=== PATIENT | female | born 1985 | race Hispanic/Latino ===

== ENCOUNTER 2021-04-23 14:12 | Observation (INO) | payer MEDICAID, OTHER ==
[~2021-04-23] VITALS: Ht 172.7 cm; Wt 104.3 kg
[2021-04-23 14:59] LABS: BASOPHILS % (AUTO) 0.6 % (0.0-5.0); EOSINOPHILS % (AUTO) 0.6 % (0.0-8.0); HEMATOCRIT 22.9 % (36-48); LYMPHOCYTES % (AUTO) 19.6 % (21.0-51.0); MEAN CORPUSCULAR HEMOGLOBIN 18.9 pg (27.0-33.0); MEAN CORPUSCULAR HGB CONC 29.3 g/dL (32.0-36.0); MEAN CORPUSCULAR VOLUME 64.5 fL (79-99); MONOCYTES % (AUTO) 4.2 % (3.0-13.0); NEUTROPHILS % (AUTO) 74.4 % (40.0-77.0); PLATELET COUNT (AUTO) 461 K/uL (130-400); RED BLOOD CELL COUNT(AUTO) 3.55 MIL/uL (4.00-5.50); RED CELL DISTRIBUTION WIDTH 19.9 % (11.0-15.5); WHITE BLOOD COUNT (AUTO) 9.5 K/uL (4.8-10.8)
[2021-04-23 16:10] LABS: APPEARANCE,URINE Cloudy (CLEAR); BILIRUBIN,URINE Negative (NEGATIVE); COLOR,URINE Dark Yellow (YELLOW); GLUCOSE, URINE (UA) Negative (NEGATIVE); KETONES,URINE Trace mg/dL (NEGATIVE); LEUKOCYTE ESTERASE ,URINE Trace (NEGATIVE); NITRATE,URINE Negative (NEGATIVE); OCCULT BLOOD,URINE Large (NEGATIVE); PH,URINE 5.5 (5.0-8.0); PROTEIN,URINE Trace mg/dL (NEGATIVE)
[2021-04-23 16:22] LABS: BACTERIA,URINE Few /HPF (None Seen); RBC,URINE 26-50 /HPF (0-1)
[2021-04-23 16:24] LABS: MUCUS,URINE Few LPF (None Seen); SQUAMOUS EPITHELIAL CELL,UR Few /HPF (0-2)
[2021-04-23 16:25] LABS: YEAST,URINE BUDDING Rare /HPF (None Seen)
[2021-04-23 16:40] LABS: CREATININE 0.8 mg/dL (0.5-1.5)
[2021-04-23 16:44] LABS: ALBUMIN 3.6 g/dL (3.5-5.0); BILIRUBIN,TOTAL 0.4 mg/dL (0.2-1.0)
[2021-04-23] MEDS ORDERED: ACETAMINOPHEN WITH CODEINE 1 TAB TAB PO PRN (18:30)
[2021-04-23] MEDS ORDERED: TRANEXAMIC ACID 1000MG/10ML IV ONE (18:30)
[2021-04-23] MEDS ORDERED: TRANEXAMIC ACID 1000MG/10ML ONE (19:51)
[2021-04-23] MEDS ORDERED: 0.9%NACL 50ML 50 ML IV ONE (19:53)
[2021-04-23] MEDS: ESTROGENS,CONJUGATED 25 MG/VIAL IV SCH (20:04)
[2021-04-23 20:50] VITALS: BP 124/71
[2021-04-23] MEDS: IBUPROFEN 600 MG TABLET PO PRN (21:19)
[2021-04-23 22:58] VITALS: BP 113/71
[2021-04-24 03:05] VITALS: BP 93/54
[2021-04-24 07:00] VITALS: BP 107/66
[2021-04-24] MEDS: ESTROGENS,CONJUGATED 25 MG/VIAL IV SCH (08:00)
[2021-04-24 08:48] LABS: HEMATOCRIT 24.8 % (36-48); MEAN CORPUSCULAR HEMOGLOBIN 21.6 pg (27.0-33.0); MEAN CORPUSCULAR VOLUME 69.5 fL (79-99); RED BLOOD CELL COUNT(AUTO) 3.57 MIL/uL (4.00-5.50); RED CELL DISTRIBUTION WIDTH 24.1 % (11.0-15.5); WHITE BLOOD COUNT (AUTO) 10.5 K/uL (4.8-10.8)
[2021-04-24 11:30] VITALS: BP 114/68
[2021-04-24] MEDS: IBUPROFEN 600 MG TABLET PO PRN ×2 (11:36→20:11)
[2021-04-24 16:00] VITALS: BP 121/72
[2021-04-24 19:12] VITALS: BP 119/67
[2021-04-24 22:53] VITALS: BP 117/72
== END 2021-04-25 01:20 | disposition home or self-care (01) ==
LOC: EDH 14:12 → EDHIP 17:55 → WSH 20:58
PROVIDERS: ADMIT Obstetrics & Gynecology; ATTEND Obstetrics & Gynecology
DX: N93.9 Abnormal uterine and vaginal bleeding, unspecified (principal); D50.0 Iron deficiency anemia secondary to blood loss (chronic); N83.201 Unspecified ovarian cyst, right side; Z98.51 Tubal ligation status
CPT/HCPCS: 36415 ×2; 36430 ×2; 76830; 80053; 81001; 84702; 85025; 85027; 86850; 86900; 86901; 86923 ×3; 96361; 96374; 96376; 99291; G0378 ×31; J1410 ×2; J3490; J7030; P9016 ×3

== ENCOUNTER 2021-11-06 20:20 | Emergency (ER) | payer OTHER, SELFPAY ==
[~2021-11-06] VITALS: Ht 172.7 cm; Wt 127.9 kg
[2021-11-06] MEDS ORDERED: 0.9%NACL 1000ML 1,000 ML IV ONE (21:00)
[2021-11-06] MEDS ORDERED: ACETAMINOPHEN 500 MG TABLET PO ONE (21:00)
[2021-11-06 21:10] LABS: BASOPHILS % (AUTO) 0.2 % (0.0-5.0); HEMATOCRIT 33.4 % (36-48); LYMPHOCYTES % (AUTO) 1.9 % (21.0-51.0); MEAN CORPUSCULAR HEMOGLOBIN 24.7 pg (27.0-33.0); MEAN CORPUSCULAR HGB CONC 32.3 g/dL (32.0-36.0); MEAN CORPUSCULAR VOLUME 76.3 fL (79-99); MONOCYTES % (AUTO) 2.9 % (3.0-13.0); NEUTROPHILS % (AUTO) 93.8 % (40.0-77.0); PLATELET COUNT (AUTO) 277 K/uL (130-400); RED BLOOD CELL COUNT(AUTO) 4.38 MIL/uL (4.00-5.50); RED CELL DISTRIBUTION WIDTH 20.5 % (11.0-15.5); WHITE BLOOD COUNT (AUTO) 25.8 K/uL (4.8-10.8)
[2021-11-06] MEDS ORDERED: IBUPROFEN 600 MG TABLET PO ONE (21:30)
[2021-11-06] MEDS ORDERED: ZOSYN 3.375GM +NS 50ML IV SCH (21:30)
[2021-11-06 21:52] LABS: POTASSIUM 3.2 mmol/L (3.5-5.1)
[2021-11-06 21:57] LABS: ALBUMIN 3.8 g/dL (3.5-5.0); BILIRUBIN,TOTAL 1.2 mg/dL (0.2-1.0); TOTAL PROTEIN, SERUM 8.1 g/dL (6.0-8.3)
[2021-11-06] MEDS ORDERED: IOHEXOL 350 MG/ML 100ML INFUS..BTL IV ONE (22:04)
[2021-11-06 23:02] LABS: APPEARANCE,URINE CLEAR (CLEAR); BILIRUBIN,URINE NEGATIVE (NEGATIVE); GLUCOSE, URINE (UA) NEGATIVE (NEGATIVE); KETONES,URINE NEGATIVE (NEGATIVE); LEUKOCYTE ESTERASE ,URINE NEGATIVE (NEGATIVE); NITRATE,URINE NEGATIVE (NEGATIVE); OCCULT BLOOD,URINE NEGATIVE (NEGATIVE); PROTEIN,URINE NEGATIVE (NEGATIVE); UROBILINOGEN,URINE 0.2 mg/dL (0.2-1.0)
[2021-11-06 23:06] LABS: COLOR,URINE STRAW (YELLOW)
[2021-11-07] MEDS ORDERED: CEFTRIAXONE 2GM VIAL IVP ONE (01:00)
[2021-11-07 01:34] LABS: GLUCOSE, CSF 68 mg/dL (40-70); TOTAL PROTEIN, CSF 29 mg/dL (15-45)
[2021-11-07 02:33] LABS: APPEARANCE,CSF CLEAR (CLEAR); COLOR,CSF COLORLESS (COLORLESS); CSF TOTAL VOLUME 6.5 mL; CSF TUBE NUMBER 1
[2021-11-07 02:34] LABS: WHITE BLOOD CELL1,CSF 1 CMM (0-5)
[2021-11-07 02:35] LABS: APPEARANCE2,CSF CLEAR (CLEAR); COLOR2,CSF COLORLESS (COLORLESS); CSF 2ND TUBE NUMBER 4; RED BLOOD CELL1,CSF 1 CMM (0-0)
[2021-11-07] MEDS ORDERED: 0.9%NACL 1000ML 1,000 ML IV SCH (04:20)
[2021-11-07 04:45] VITALS: BP 105/51
== END 2021-11-07 04:56 | disposition home or self-care (01) ==
LOC: EDH 20:20
DX: D72.829 Elevated white blood cell count, unspecified (principal); R50.9 Fever, unspecified; R11.2 Nausea with vomiting, unspecified; R10.30 Lower abdominal pain, unspecified; M79.10 Myalgia, unspecified site; Z20.822 Contact with and (suspected) exposure to COVID-19; Z79.1 Long term (current) use of non-steroidal anti-inflammatories (NSAID)
CPT/HCPCS: 36415 ×2; 62270; 71045; 74177; 80053; 81003; 82945; 83605; 84157; 84703; 85025; 87040 ×2; 87071; 87088; 87147; 87205; 87252; 87635; 87804 ×2; 87880; 89051 ×2; 96361; 96365; 96366; 96375; 99285; C9803; J0696; J2543; J7030; Q9967